=== PATIENT | male | born 1965 | race African-American/Black ===

== ENCOUNTER → 2017-10-01 | Outpatient (CLI) | payer OTHER | END | disposition home or self-care (01) | LOC: KCIC 15:30 | DX: M19.072 Primary osteoarthritis, left ankle and foot (principal); M19.071 Primary osteoarthritis, right ankle and foot; M19.041 Primary osteoarthritis, right hand; M21.612 Bunion of left foot; M21.611 Bunion of right foot | CPT/HCPCS: 73130; 73562; 73630 ==